=== PATIENT | male | born 1975 | race Caucasian/White ===

== ENCOUNTER 2022-06-03 04:15 | Emergency (ER) | payer BC, OTHER ==
[~2022-06-03] VITALS: Ht 179.8 cm; Wt 95.7 kg
--- NOTE | 2022-06-03 04:30 | ED Back Pain ---
General Chief Complaint: Back Problems Stated Complaint: RIGHT SIDE RIB AND ABD PAIN Source of Information: Patient Exam Limitations: No Limitations History of Present Illness Date Seen by Provider: Jun 03, 2022 Time Seen by Provider: 04:20 Initial Comments 47-year-old male with past medical history of Crohn's disease coming in due to right flank pain radiating to his right side of his abdomen to his groin. Started intermittently for the past couple days, worse around 2 AM. A couple days ago he tried hydrocodone which did help. He has not had any pain medicine within the past 24 hours. Has had an episode of nonbloody nonbilious vomiting as well. He states it feels somewhat similar to his prior kidney stone. Denies any dysuria, diarrhea, hematuria, chest pain, shortness of breath, weakness, numbness, rash, or any other concerns. Allergies and Home Medications Allergies Coded Allergies: No Known Drug Allergies (Unverified , 06/03/22) Patient Home Medication List Home Medication List Reviewed: Yes Ketorolac Tromethamine (Ketorolac Tromethamine) 10 Mg Tablet, 10 MG PO Q6H Prescribed by: CELIA BOWEN on 06/03/22 0545 Ondansetron (Ondansetron Odt) 4 Mg Tab.rapdis, 4 MG SL Q6H PRN for NAUSEA/VO MITING Prescribed by: CELIA BOWEN on 06/03/22 0545 Oxycodone HCl (Oxycodone HCl) 5 Mg Tablet, 5 MG PO Q6H PRN for PAIN-SEVERE (8- 10) Prescribed by: CELIA BOWEN on 06/03/22 0546 Tamsulosin HCl (Flomax) 0.4 Mg Cap, 0.4 MG PO DAILY Prescribed by: CELIA BOWEN on 06/03/22 0545 Review of Systems Constitutional: No fever EENTM: no symptoms reported Respiratory: no symptoms reported Cardiovascular: no symptoms reported Gastrointestinal: see HPI Genitourinary: see HPI Musculoskeletal: no symptoms reported Skin: no symptoms reported Psychiatric/Neurological: No Symptoms Reported All Other Systems Reviewed Negative Unless Noted: Yes Past Bjtncua-Jmnktj-Zdoddc Hx Patient Social History Tobacco Use?: No Substance use?: No Alcohol Use?: No Past Medical History Surgeries: Yes Gallbladder Physical Exam Vital Signs Vital Signs - First Documented 06/03/22 04:29 Temp 35.1 Pulse 66 Resp 18 B/P (MAP) 179/106 (130) Pulse Ox 98 O2 Delivery Room Air Capillary Refill : Height, Weight, BMI Height: '" Weight: lbs. oz. kg; BMI Method: General Appearance: No Apparent Distress, WD/WN HEENT: PERRL/EOMI, Normal ENT Inspection, Pharynx Normal Neck: Full Range of Motion, Normal Inspection, Non Tender, Supple Cardiovascular: Regular Rate, Rhythm, No Edema, Normal Peripheral Pulses Respiratory: Chest Non Tender, Lungs Clear, Normal Breath Sounds, No Accessory Muscle Use, No Respiratory Distress Gastrointestinal: Normal Bowel Sounds, Non Tender, Soft; No Distended, No Guarding Back: Normal Inspection, No Vertebral Tenderness, CVA Tenderness (R) Extremity: Normal Capillary Refill, Normal Inspection, Normal Range of Motion, Non Tender, No Calf Tenderness, No Pedal Edema Neurologic/Psychiatric: Alert, No Motor/Sensory Deficits, Normal Mood/Affect Skin: Normal Color, Warm/Dry Lymphatic: No Adenopathy Progress/Results/Core Measures Results/Orders Lab Results Laboratory Tests Test 06/03/22 04:38 Range/Units White Blood Count 8.8 4.3-11.0 10^3/uL Red Blood Count 4.74 4.30-5.52 10^6/uL Hemoglobin 14.8 13.3-17.7 g/dL Hematocrit 42 40-54 % Mean Corpuscular Volume 88 80-99 fL Mean Corpuscular Hemoglobin 31 25-34 pg Mean Corpuscular Hemoglobin Concent 35 32-36 g/dL Red Cell Distribution Width 12.8 10.0-14.5 % Platelet Count 263 130-400 10^3/uL Mean Platelet Volume 9.4 9.0-12.2 fL Immature Granulocyte % (Auto) 0 % Neutrophils (%) (Auto) 65 42-75 % Lymphocytes (%) (Auto) 27 12-44 % Monocytes (%) (Auto) 7 0-12 % Eosinophils (%) (Auto) 1 0-10 % Basophils (%) (Auto) 0 0-10 % Neutrophils # (Auto) 5.7 1.8-7.8 10^3/uL Lymphocytes # (Auto) 2.3 1.0-4.0 10^3/uL Monocytes # (Auto) 0.6 0.0-1.0 10^3/uL Eosinophils # (Auto) 0.1 0.0-0.3 10^3/uL Basophils # (Auto) 0.0 0.0-0.1 10^3/uL Immature Granulocyte # (Auto) 0.0 0.0-0.1 10^3/uL Sodium Level 139 135-145 MMOL/L Potassium Level 3.3 L 3.6-5.0 MMOL/L Chloride Level 101 98-107 MMOL/L Carbon Dioxide Level 24 21-32 MMOL/L Anion Gap 14 5-14 MMOL/L Blood Urea Nitrogen 18 7-18 MG/DL Creatinine 0.95 0.60-1.30 MG/DL Estimat Glomerular Filtration Rate 101 BUN/Creatinine Ratio 19 Glucose Level 124 H 70-105 MG/DL Calcium Level 9.6 8.5-10.1 MG/DL Corrected Calcium 9.2 8.5-10.1 MG/DL Magnesium Level 1.7 1.6-2.4 MG/DL Total Bilirubin 0.9 0.1-1.0 MG/DL Aspartate Amino Transf (AST/SGOT) 23 5-34 U/L Alanine Aminotransferase (ALT/SGPT) 32 0-55 U/L Alkaline Phosphatase 73 40-136 U/L C-Reactive Protein 0.48 <0.50 MG/DL Total Protein 8.4 H 6.4-8.2 GM/DL Albumin 4.5 3.2-4.5 GM/DL Lipase 23 8-78 U/L My Orders Orders - CELIA BOWEN MD Cbc With Automated Diff (06/03/22 04:) Comprehensive Metabolic Panel (06/03/22 04:31) Lipase (06/03/22 04:31) Magnesium (06/03/22 04:31) Ua Culture If Indicated (06/03/22 04:) Crp Fs (06/03/22 04:31) Ct Abdomen/Pelvis Wo (06/03/22:31) Morphine Injection (Morphine Injection (06/03/22 04:31) Ketorolac Injection (Toradol Injection) (06/03/22 04:45) Ondansetron Injection (Zofran Injectio (06/03/22 04:45) Ns Iv 1000 Ml (Sodium Chloride 0.9%) (06/03/22 04:31) Ondansetron Injection (Zofran Injectio (06/03/22 04:45) Oxycodone Immediate Rel Tablet (Oxyir Ta (06/03/22 04:45) Medications Given in ED Current Medications Medications Dose Ordered Sig/Dominik Route Start Time Stop Time Status Last Admin Dose Admin Ketorolac Tromethamine 15 mg ONCE ONCE IVP 06/03/22 04:45 06/03/22 04:46 DC 06/03/22 04:42 15 MG Ondansetron HCl 4 mg ONCE ONCE IVP 06/03/22 04:45 06/03/22 04:46 DC 06/03/22 04:43 4 MG Vital Signs/I&O 06/03/22 04:29 Temp 35.1 Pulse 66 Resp 18 B/P (MAP) 179/106 (130) Pulse Ox 98 O2 Delivery Room Air Progress Progress Note : Progress Note 47-year-old male with above history coming in due to right flank pain going to his right leg. ABCs were intact and vitals are stable on presentation. Physical exam with right CVA tenderness and no abdominal pain. An IV was placed and he was given morphine for pain as well as Toradol and Zofran. He was also given a liter of IV fluids. Basic labs reassuring. CT on my interpretation with a kidney stone obstructing right at the UVJ causing hydronephrosis. I will give the patient medications for symptomatic management and a trial of passage. Given that there was some perinephric stranding on CT from the radiologist, we will start him on antibiotics as well. Diagnostic Imaging Diagonstic Imaging: CT (abd/pelvis) Comments NAME: ESTEFANY KING [facility] REC#: [id number] PT STATUS: REG ER : 1975 PHYSICIAN: CELIA BOWEN MD ADMIT DATE: 06/03/22/ER FS Draft Date of Exam:06/03/22 CT ABDOMEN/PELVIS WO PROCEDURE: CT abdomen and pelvis without contrast. TECHNIQUE: Multiple contiguous axial images were obtained through the abdomen and pelvis without the use of intravenous contrast. Auto Exposure Controls were utilized during the CT exam to meet ALARA standards for radiation dose reduction. INDICATION: 47-year-old male with right flank pain. COMPARISONS: None. FINDINGS: Lung bases are clear. Cardiac contour is within normal limits. Sliver pericardial fluid most likely physiologic. Liver shows grade 3 steatosis. There is no intraparenchymal mass or ductal dilatation. Gallbladder surgically absent. Spleen and GE junction are normal. Stomach and duodenal sweep are unremarkable. Pancreas shows sharp margins. Adrenals are normal. Kidneys appear normal in size, position and contour. 2 separate punctate nonobstructing left renal calculi are seen. On the right, there is some perinephric stranding with [id number] right hydronephrosis and right hydroureter. There is right obstructive uropathy secondary to a stone in the right ureterovesical junction measuring approximately 5 mm. The bladder is nondistended. Nonopacified loops of small bowel are grossly unremarkable. Large bowel contains fecal material and gas. Appendix is unremarkable. The aorta iliac and femoral arteries show normal caliber with a normal origin of the visceral arteries. Bone windows show degenerative changes of lumbosacral spine with some vacuum disc with possible disc protrusion at L3-L4. IMPRESSION: 1. Right obstructive uropathy with moderate right hydronephrosis secondary to a 5 mm stone at the right ureterovesical junction. There is associated some mild right perinephric stranding. 2. Punctate nonobstructing left renal calculi. 3. Grade 3 hepatic steatosis. 4. Degenerative changes in the lumbar spine. If symptoms warrant, a non-contrast MRI lumbar spine may be of further value. Additional nonemergent findings as described. Dictated on workstation # [id number] Dict: 06/03/2226 Trans: 06/03/22 0542 [id number] Interpreted by: LISA MCLEOD MD Electronically signed by: Departure Impression Primary Impression: Ureterolithiasis Disposition: HOME, SELF-CARE Condition: Stable Departure-Patient Inst. Decision time for Depature: 06:00 Referrals: NO,LOCAL PHYSICIAN (PCP) Primary Care Physician MERCEDES WOLF MD Patient Instructions: Kidney Stone, Adult ED Add. Discharge Instructions: You have a kidney stone there on the right which is almost to your bladder. Try taking the Toradol as needed for pain. If you have pain on top of that you can take the oxycodone. Zofran was sent for nausea. The tamsulosin is to try to help the stone pass and he will take that once a day. Follow-up with a urologist back in your hometown, but if you will be in town for a while, you can follow-up with Dr. Wolf in [place], [place]. Your kidney did look inflamed as well which could be signs of infection. You will be on an antibiotic twice a day. Scripts Cefdinir (Cefdinir) 300 Mg Capsule 300 MG PO BID for 7 Days, #14 CAP 0 Refills Prov: CELIA BOWEN MD 06/03/22 Ondansetron (Ondansetron Odt) 4 Mg Tab.rapdis 4 MG SL Q6H PRN for NAUSEA/VOMITING for 5 Days, #20 TAB Prov: CELIA BOWEN MD 06/03/22 Ketorolac Tromethamine (Ketorolac Tromethamine) 10 Mg Tablet 10 MG PO Q6H for 3 Days, #12 TAB Prov: CELIA BOWEN MD 06/03/22 Tamsulosin HCl (Flomax) 0.4 Mg Cap 0.4 MG PO DAILY for 14 Days, #14 CAP Prov: CELIA BOWEN MD 06/03/22 Oxycodone HCl (Oxycodone HCl) 5 Mg Tablet 5 MG PO Q6H PRN for PAIN-SEVERE (8-10) for 3 Days, #12 TAB Prov: CELIA BOWEN MD 06/03/22 Work/School Note: Work Release Form Date Seen in the Emergency Department: Jun 03, 2022 Return to Work: Jun 06, 2022 Restrictions: No Restrictions CELIA BOWEN MD Jun 03, 2022 04:30
[2022-06-03] MEDS ORDERED: NS IV 1000 ML 1,000 ML IV STA (04:31)
[2022-06-03] MEDS ORDERED: morphine INJ 10 MG/ML 1ML (SYR OR VIAL) IVP STA (04:31)
[2022-06-03] MEDS ORDERED: KETOROLAC 30 MG/ML VIAL IVP ONE (04:45)
[2022-06-03] MEDS ORDERED: ONDANSETRON 4 MG/2 ML (SDV) Z0FRAN IVP ONE (04:45)
[2022-06-03] MEDS ORDERED: ONDANSETRON 4 MG/2 ML (SDV) Z0FRAN IVP PRN (04:45)
[2022-06-03 04:58] LABS: BASOPHILS % (AUTO) 0 % (0-10); EOSINOPHILS # (AUTO) 0.1 10^3/uL (0.0-0.3); EOSINOPHILS % (AUTO) 1 % (0-10); HEMATOCRIT 42 % (40-54); HEMOGLOBIN 14.8 g/dL (13.3-17.7); LYMPHOCYTES # (AUTO) 2.3 10^3/uL (1.0-4.0); LYMPHOCYTES % (AUTO) 27 % (12-44); MEAN CORPUSCULAR HEMOGLOBIN 31 pg (25-34); MEAN CORPUSCULAR HGB CONC 35 g/dL (32-36); MEAN CORPUSCULAR VOLUME 88 fL (80-99); MEAN PLATELET VOLUME 9.4 fL (9.0-12.2); MONOCYTES # (AUTO) 0.6 10^3/uL (0.0-1.0); MONOCYTES % (AUTO) 7 % (0-12); NEUTROPHILS # (AUTO) 5.7 10^3/uL (1.8-7.8); NEUTROPHILS % (AUTO) 65 % (42-75); PLATELET COUNT 263 10^3/uL (130-400); WHITE BLOOD COUNT 8.8 10^3/uL (4.3-11.0)
[2022-06-03 05:24] LABS: CALCIUM 9.6 MG/DL (8.5-10.1); CREATININE SERUM 0.95 MG/DL (0.60-1.30); POTASSIUM 3.3 MMOL/L (3.6-5.0)
[2022-06-03 05:25] LABS: ALBUMIN 4.5 GM/DL (3.2-4.5); BILIRUBIN,TOTAL 0.9 MG/DL (0.1-1.0); MAGNESIUM 1.7 MG/DL (1.6-2.4); TOTAL PROTEIN 8.4 GM/DL (6.4-8.2)
--- NOTE | 2022-06-03 05:43 | Diagnostic Imaging Report ---
PROCEDURE: CT abdomen and pelvis without contrast. TECHNIQUE: Multiple contiguous axial images were obtained through the abdomen and pelvis without the use of intravenous contrast. Auto Exposure Controls were utilized during the CT exam to meet ALARA standards for radiation dose reduction. INDICATION: 47-year-old male with right flank pain. COMPARISONS: None. FINDINGS: Lung bases are clear. Cardiac contour is within normal limits. Sliver pericardial fluid most likely physiologic. Liver shows grade 3 steatosis. There is no intraparenchymal mass or ductal dilatation. Gallbladder surgically absent. Spleen and GE junction are normal. Stomach and duodenal sweep are unremarkable. Pancreas shows sharp margins. Adrenals are normal. Kidneys appear normal in size, position and contour. 2 separate punctate nonobstructing left renal calculi are seen. On the right, there is some perinephric stranding with [id number] right hydronephrosis and right hydroureter. There is right obstructive uropathy secondary to a stone in the right ureterovesical junction measuring approximately 5 mm. The bladder is nondistended. Nonopacified loops of small bowel are grossly unremarkable. Large bowel contains fecal material and gas. Appendix is unremarkable. The aorta iliac and femoral arteries show normal caliber with a normal origin of the visceral arteries. Bone windows show degenerative changes of lumbosacral spine with some vacuum disc with possible disc protrusion at L3-L4. IMPRESSION: 1. Right obstructive uropathy with moderate right hydronephrosis secondary to a 5 mm stone at the right ureterovesical junction. There is associated some mild right perinephric stranding. 2. Punctate nonobstructing left renal calculi. 3. Grade 3 hepatic steatosis. 4. Degenerative changes in the lumbar spine. If symptoms warrant, a non-contrast MRI lumbar spine may be of further value. Additional nonemergent findings as described. Dictated by: Dictated on workstation # [id number]
[2022-06-03] MEDS ORDERED: KETO10TA PO (05:45)
[2022-06-03] MEDS ORDERED: TMSL.4C PO (05:45)
[2022-06-03] MEDS ORDERED: ONDA4TAB11 SL (05:45)
[2022-06-03] MEDS ORDERED: OXYC5TAB PO (05:45)
[2022-06-03] MEDS ORDERED: CEFD300C3 PO (05:49)
[2022-06-03 05:54] LABS: BILIRUBIN,URINE NEGATIVE (NEGATIVE); CLARITY,URINE SL CLOUDY; COLOR,URINE YELLOW; GLUCOSE, URINE (UA) NEGATIVE (NEGATIVE); KETONES,URINE NEGATIVE (NEGATIVE); LEUKOCYTE ESTERASE ,URINE NEGATIVE (NEGATIVE); NITRITE,URINE NEGATIVE (NEGATIVE); PH,URINE 5.5 (5-9); PROTEIN,URINE TRACE (NEGATIVE)
[2022-06-03 06:01] LABS: BACTERIA,URINE NEGATIVE /HPF; RBC,URINE 25-50 /HPF; WBC,URINE RARE /HPF
[2022-06-03 06:22] VITALS: BP 164/94
== END 2022-06-03 06:22 | disposition home or self-care (01) ==
LOC: ER FS 04:21
DX: N13.2 Hydronephrosis with renal and ureteral calculous obstruction (principal); Z28.310 Unvaccinated for COVID-19
CPT/HCPCS: 36415; 74176; 80053; 81000; 83690; 83735; 85025; 86141